=== PATIENT | male | born 1965 ===

== ENCOUNTER 2017-01-31 07:42 | Emergency (ER) | payer SELFPAY ==
--- NOTE | 2017-01-31 10:24 | UC ---
Marcin Scherer Salem, scribed for Eligio Urrutia MD on 01/31/17 at 0841 . General HPI - HPI Summary HPI Summary: Patient is a 51 y/o M who presents to the with high BP. He states that he recently had his BP checked and it was 155/93. (His BP was 163/106 upon examination today.) Pt states that he travels a lot and that he lives in [place] , but is in [place] visiting his mother. Pt complains of SOB while taking the stairs and while he was in [facility] and in [facility]. Pt also had diarrhea for a week that is now resolved on his past trip. He currently reports some gas. Pt will be leaving the country for [place] in 4 days and is concerned about health. He also states that he does not want to treat HTN with medication. Patients medication reviewed this visit. - History of Current Complaint Chief Complaint: UCGeneralIllness Stated Complaint: ABDOMINAL PAIN Time Seen by Provider: 01/31/17 08:26 Hx Obtained From: Patient Onset/Duration: Gradual Onset, Lasting Days, Still Present Timing: Intermittent Episodes Lasting: Onset Severity: Moderate Current Severity: Moderate Pain Intensity: 0 Aggravating: Exercise. Alleviating: Rest. Associated Signs & Symptoms: Positive: SOB, Other - High BP. - Allergy/Home Medications Allergies/Adverse Reactions: Allergies Allergy/AdvReac Type Severity Reaction Status Date / Time Bee Venom Allergy Anaphylatic Verified 01/31/17 07:49 Shock Lactose Allergy GI Upset Verified 01/31/17 07:49 Penicillins Allergy Unknown Verified 01/31/17 07:49 Reaction Details Wheat Bran Allergy See Comment Verified 01/31/17 07:49 Home Medications: Home Medications Mometasone NASAL (NF) [Nasonex (NF)] 01/31/17 [History] PMH/Surg Hx/FS Hx/Imm Hx Previously Healthy: Yes - Surgical History Surgical History: Yes Surgery Procedure, Year, and Place: EYE SURGERY-2014 - Family History Known Family History: Positive: Cardiac Disease, Hypertension - Social History Alcohol Use: Occasionally Substance Use Type: None Smoking Status (MU): Never Smoked Tobacco Review of Systems Respiratory: Shortness Of Breath Cardiovascular: Other - High BP. Gastrointestinal: Diarrhea, Other - Gas. All Other Systems Reviewed And Are Negative: Yes Physical Exam Triage Information Reviewed: Yes Vital Signs: Initial Vital Signs Temp 98.3 F 01/31/17 07:50 Pulse 70 01/31/17 07:50 Resp 16 01/31/17 07:50 BP 163/106 01/31/17 07:50 Pulse Ox 100 01/31/17 07:50 BP noted. Vital Signs Reviewed: Yes - Additional Comments The patient is well-nourished in no acute distress and in no acute pain. The skin is warm and dry and skin color reflects adequate perfusion. HEENT: The head is normocephalic and atraumatic. The pupils are equal and reactive. The conjunctivae are clear and without drainage. Neck is supple with full range of motion and non-tender. T Respiratory: Chest is non-tender. Lungs are clear to auscultation and breath sounds are symmetrical and equal. Cardiovascular: Hear is regular rate and rhythm. There is no murmur or rub auscultated. There is no peripheral edema and pulses are symmetrical and equal. Abdomen: The abdomen is soft and non-tender. Musculoskeletal: There is no back pain noted. Extremities are non-tender with full range of motion. There is good capillary refill. Neurological: Patient is alert and oriented to person, place and time. The patient has symmetrical motor strength in all four extremities. Psychiatric: The patient has an appropriate affect and does not exhibit any anxiety or depression. Diagnostics - EKG Cardiac Rate: NL - NSR @ 67 bpm. No stemi. No ischemic changes. Re-Evaluation - Re-Evaluation First Eval Re-Evaluation Time: 09:00 Comment: Discussed EKG. Course/Dx - Course Course Of Treatment: 51 y/o presents with high BP. He states that he does not want to treat HTN with medication because he travels often. Will provide pt with instructions on HTN care with exercise and follow up with PCP. He is agreeable. - Differential Dx - Multi-Symptom Differential Diagnoses: Other - hypertension Provider Diagnoses: HTN. Discharge - Discharge Plan Condition: Stable Disposition: HOME Patient Education Materials: Hypertension (ED) Referrals: [facility] PHYSICIAN REFERRAL [Outside] Additional Instructions: Please follow up with [facility] Referral. Exercise in the treatment and prevention of hypertension Author:SAE Krauseection Commercial Makeup Artist:SANDRO Hendersoneputy Editors: Francesco Patel MD, MPHJose Miguel Bean MD, MSc Contributor Disclosures All topics are updated as new evidence becomes available and our peer review process is complete. Literature review current through: December 2016. | This topic last updated: Aug 29, 2015. INTRODUCTION Long-term aerobic exercise regimens (in most studies) have had a beneficial effect on the systemic blood pressure (BP) and therefore may reduce the incidence of hypertension [1-6]. During aerobic exercise, there is an appropriate elevation in BP, primarily systolic. However, some subjects have an exaggerated increase in BP during exercise, which may be an adverse prognostic sign. In addition to aerobic exercise, resistance training has been shown to reduce BP [7]. EFFICACY Both aerobic exercise and resistance training lower resting blood pressure (BP). Aerobic exercise Regular aerobic exercise can lower the BP by as much as 5 to 15 mmHg in patients with primary hypertension (formerly called "essential" hypertension), although the effect is not as pronounced among older individuals [8]. In meta-analyses of randomized, controlled trials, the mean reduction in systolic and diastolic BP was 4 to 6 and 3 mmHg, respectively [1,9,10]. Patients with resistant hypertension may also benefit from aerobic exercise [11] . Swimming training also can have a beneficial effect [12]. It may be particularly useful in patients with orthopedic problems or, because of the warm , humid environment, those with bronchospasm. (See "Exercise-induced bronchoconstriction".) A similar fall in BP has been demonstrated in subjects with borderline hypertension, with the BP often being lowered into the normal range [13]. By comparison, the incidence of hypertension is increased in individuals with a low level of fitness [2,14]. The BP response to exercise is dependent upon continuation of the exercise program, as abstention from exercise is associated with a return of the BP toward the pre-exercise level [13]. In addition to voluntary exercise, spontaneous physical activity (fidgeting) is another potentially important source (100 to 800 kcal/day) of energy expenditure [15]. With few exceptions, most studies have shown a persistent fall in BP that is more dependent upon the intensity of exercise than on its frequency [10]. In a study of 207 untreated hypertensive patients, for example, those who exercised for eight weeks at an intensity of 50 percent of estimated maximal oxygen consumption only two times a week for a total of 60 minutes had almost as much fall in BP (about 12/6 mmHg) as those who exercised more than five times a week for a total of more than 120 minutes [16]. In addition to its antihypertensive effect, regular aerobic exercise also provides other cardiovascular benefits. These include a fall in total cholesterol, an elevation in HDL-cholesterol, a reduction in weight, and a decline in overall cardiovascular mortality (figure 1). The effects of both duration and intensity of exercise on primary and secondary prevention of cardiovascular disease are presented in detail elsewhere. (See "Exercise and fitness in the prevention of cardiovascular disease".) Resistance training Resistance (strength) training with either dynamic (in which joint angles and muscle lengths change) or pure isometric (in which they do not) exercise also reduces resting BP [7,10,17]. A meta-analysis of 28 trials that enrolled 1012 participants found that resting BP significantly decreased by 4/4 mmHg with moderate-intensity resistance training [7]. The effect of resistance training was slightly larger with isometric (as compared with dynamic) resistance and in normotensive (as compared with hypertensive) individuals. MECHANISMS The factors responsible for the potential antihypertensive effect of long-term aerobic exercise are incompletely understood [18], although both a reduction in sympathetic activity and an improvement in endothelial function have been proposed [3,4,19-21]. As an example, a randomized trial of 28 patients with a recent myocardial infarction showed that exercise training improved baroreceptor sensitivity and reduced muscle sympathetic nerve activity [19]. Another study that performed muscle biopsies on patients with hypertension before and after an exercise program documented decreased levels of the vasoconstrictor thromboxane and increased levels of the vasodilator prostacyclin [20]. Although the foregoing studies minimized concurrent weight loss, which would confound their results, patients who exercise may derive additional advantages through the effects of exercise on weight loss [22]. (See "Obesity and weight reduction in hypertension".) BETA BLOCKERS AND EXERCISE The ability to perform exercise may be adversely effected by antihypertensive medications. In particular, beta blockers ( particularly those that are nonselective) can significantly diminish exercise performance. There is, however, a training effect, and maintenance of performance levels has been observed in patients treated with beta blockers [23] . Other classes of antihypertensive drugs have no detrimental effect on the ability to exercise. EXAGGERATED EXERCISE-INDUCED HYPERTENSION Strength training and pure isometric exercise, such as weight lifting, can acutely raise the blood pressure (BP) to as high as 230 to 330/170 to 250 mmHg in some individuals [24]. Reflex-mediated increased cardiac output and elevated vascular resistance (due in part to mechanical compression in the exercising muscles) contribute to this hypertensive response. The marked increase in BP with intense isometric exercise can precipitate intraocular bleeding or retinal detachment, particularly in patients with severe non-proliferative diabetic retinopathy or proliferative diabetic retinopathy, in whom such exercise is discouraged. (See "Effects of exercise in adults with diabetes mellitus", section on 'Summary and recommendations'.) Aerobic exercise, on the other hand, is associated with an increase in cardiac output acutely but a reduction in vascular resistance due to vasodilatation in the exercising muscle [19,20,24]. As a result, the systolic pressure rises modestly, usually with no change or a slight reduction in diastolic pressure. ( See "Exercise physiology".) However, some patients have a marked (exaggerated) rise in systolic pressure with aerobic exercise, frequently defined as a peak systolic pressure during exercise of 200 mmHg or greater [25-27]. Proposed pathogenetic factors include increased sympathetic tone during the stress of exercise and a decrease in aortic distensibility, which exacerbates the elevation in systolic pressure induced by the rise in cardiac output. An exaggerated exercise-induced risk in systolic pressure is not always reproduced on subsequent exercise tests. This was illustrated in a report of 117 such patients who underwent two to seven exercise tests [28]. An exaggerated response (defined as a BP at peak exercise that exceeded 200 mmHg systolic and 100 mmHg diastolic) occurred in at least two-thirds of tests in only 18 (15 percent). Exercise-induced hypertension and cardiovascular disease An exaggerated elevation in systolic pressure during or after exercise may be prognostically important. The following observations illustrate the range of findings: Patients who have exaggerated transient elevations in BP during exercise or mental stress (particularly at work) may be particularly prone to the development of left ventricular hypertrophy (LVH) [29]. The cardiovascular mortality is increased among individuals with severe BP elevations in response to exercise. In a prospective report of 1999 apparently healthy men aged 40 to 59 years who underwent a six-minute standardized bicycle exercise test, the cardiovascular rate at 16 years was increased more than twofold in subjects with a postexercise systolic BP >200 mmHg [25]. Normotensive individuals with an exaggerated BP response to exercise may be at increased risk for subsequent hypertension. In a report from the [facility] Study, an exaggerated diastolic (not systolic) response, defined as an age -adjusted value >95th percentile, was predictive of subsequent hypertension in men and women, and an increased systolic response during recovery was predictive in men [30]. Similar results have been noted among 6557 normotensive [place] men [31]. On the other hand, exercise-induced hypertension may not be an adverse prognostic indicator in patients with suspected or known coronary disease. In one report of over 3000 such patients referred for exercise testing, those with exercise-induced hypertension (defined as a peak systolic BP 210 mmHg in men and 190 mmHg in women) were less likely to have perfusion abnormalities on a thallium scan or to have extensive abnormalities, and there was no increase in mortality at six-year follow-up [32]. A subsequent report from the same group noted a worse prognosis in patients with delayed decline in systolic BP after exercise, defined as a ratio of systolic BP at three minutes to systolic BP at one minute of recovery greater than one [33]. This finding was associated with a greater likelihood of severe coronary artery disease, ie, left main, three-vessel, or two-vessel disease with proximal left anterior descending artery involvement (34 versus 17 percent , p = 0.001) [33]. INFORMATION FOR PATIENTS [facility] offers two types of patient education materials, "The Basics" and "Beyond the Basics." The Basics patient education pieces are written in plain language, at the 5th to 6th grade reading level, and they answer the four or five castro questions a patient might have about a given condition. These articles are best for patients who want a general overview and who prefer short, [id number] materials. Beyond the Basics patient education pieces are longer, more sophisticated, and more detailed. These articles are written at the 10th to 12th grade reading level and are best for patients who want in-depth information and are comfortable with some medical jargon. Here are the patient education articles that are relevant to this topic. We encourage you to print or e-mail these topics to your patients. (You can also locate patient education articles on a variety of subjects by searching on "patient info" and the keyword(s) of interest.) Basics topic (see "Patient education: Controlling your blood pressure through lifestyle (The Basics)") Beyond the Basics topic (see "Patient education: High blood pressure, diet, and weight (Beyond the Basics)") SUMMARY Regular aerobic exercise and resistance training are usually accompanied by a fall in blood pressure (BP), which can be beneficial in the treatment of hypertension. In addition, regular exercise can likely delay, if not stop, the development of hypertension. All individuals should be advised to gradually increase their levels of physical activity. Use of [employer] is subject to the Subscription and License Agreement. REFERENCES Shanelle SP, Hermilo A, Roslyn X, Karl J. Effect of aerobic exercise on blood pressure: a meta-analysis of randomized, controlled trials. Michelle [employer]wood [employer] Med 2002; 136:493. Philippe SN, Andreas NN, Chio LW, Americo KH. Physical fitness and incidence of hypertension in healthy normotensive men and women. FUENTES 1984; 252:487. Derrick JJ, Brice JE, Armin SJ, et al. The effects of aerobic exercise on plasma catecholamines and blood pressure in patients with mild essential hypertension. FUENTES 1985; 254:2609. Jai L, Smiley GL, Ena DEVRIES, Esperanza PI. Effect of changing levels of physical activity on blood-pressure and haemodynamics in essential hypertension. Lancet 1986; 2:473. Afia MH, Matthew MB, Davonte SA, Louie BURGESS. Exercise training combined with antihypertensive drug therapy. Effects on lipids, blood pressure, and left ventricular mass. FUENTES 1990; 263:2766. Nakanishi N, Yoni K. Daily life activity and the risk of developing hypertension in middle-aged [place] men. Arch [employer] Med 2005; 165:214. Henry RAMSEY, Roney RH, Juan F E, Saloni L. Impact of resistance training on blood pressure and other cardiovascular risk factors: a meta- analysis of randomized, controlled trials. Hypertension 2011; 58:950. Louie BURGESS, Felix AC, Raffy KL, et al. Effect of exercise on blood pressure in older persons: a randomized controlled trial. Arch [employer] Med 2005; 165:756. Vinnie HO, Aleksandar JM, Nicolson DJ, et al. Lifestyle interventions to reduce raised blood pressure: a systematic review of randomized controlled trials. J Hypertens 2006; 24:215. Henry RAMSEY, Lynnette R, Jarek NA. Endurance exercise beneficially affects ambulatory blood pressure: a systematic review and meta-analysis. J Hypertens 2013; 31:639. Kristieeo F, Pagonas N, Najma F, et al. Aerobic exercise reduces blood pressure in resistant hypertension. Hypertension 2012; 60:653. Gail H, Joanie NEAL Jr, Beatrice ET, et al. Swimming training lowers the resting blood pressure in individuals with hypertension. J Hypertens 1997; 15:651. Carly VK, Bob J, Angelo J, Reid P. Effects of endurance training on baroreflex sensitivity and blood pressure in borderline hypertension. Lancet 1991; 337:1363. Piedado NC, Juan Daniel G, Anibaltamadiha M, et al. Low physical activity as a predictor for antihypertensive drug treatment in 58-13-pnxo-old populations in [place] and [place]. J Hypertens 2005; 23:293. Yosef E, Tian S, Garcia TE, et al. Determinants of 24-hour energy expenditure in man. Methods and results using a respiratory chamber. J Clin Invest 1986; 78:1568. Ishikawa-Takata K, Ohta T, Gail H. How much exercise is required to reduce blood pressure in essential hypertensives: a dose-response study. Am J Hypertens 2003; 16:629. Henry VA, Roney RH. Effect of resistance training on resting blood pressure: a meta-analysis of randomized controlled trials. J Hypertens 2005; 23: 251. Verna K. Antihypertensive mechanism of exercise. J Hypertens 1993; 11:223. Josue DG, Nicoeddieu BERENICE, Darell RL, et al. Effects of long-term exercise training on autonomic control in myocardial infarction patients. Hypertension 2011; 58: 1049. York AH, Gloria M, Bongsbo J, et al. Exercise training alters the balance between vasoactive compounds in skeletal muscle of individuals with essential hypertension. Hypertension 2011; 58:943. Goto C, Higashi Y, Ashli M, et al. Effect of different intensities of exercise on endothelium-dependent vasodilation in humans: role of endothelium-dependent nitric oxide and oxidative stress. Circulation 2003; 108:530. Thorogood A, Mottillo S, Shimony A, et al. Isolated aerobic exercise and weight loss: a systematic review and meta-analysis of randomized controlled trials. Am J Med 2011; 124:747. Sukumar MC, Diane SM, Bernice JM, Niall PD. Effect of doxazosin or atenolol on exercise performance in physically active, hypertensive men. Am J Cardiol 1995; 75:258. Murphy MC, Malu NL, Liyah P, Phuong GW. Hypertension: the acute and chronic response to exercise. Am Heart J 1991; 122:264. Anital R, Amandasen SE, Fifi L, et al. Exercise blood pressure predicts cardiovascular mortality in middle-aged men. Hypertension 1994; 24:56. Major P, Bethanie BJ, Ana Rosa JW, et al. Usefulness of exercise-induced hypertension as predictor of chronic hypertension in adults after operative therapy for aortic isthmic coarctation in childhood. Am J Cardiol 2011; 108:435. Tutu R, Dedrick F, Angeles R, et al. Exercise-induced hypertension, endothelial dysfunction, and coronary artery disease in a marathon runner. Am J Cardiol 2007 ; 99:743. Surekha Y, Petey Z, Cathy A, et al. Reproducibility of exaggerated blood pressure response to exercise in healthy patients. Am Heart J 2001; 141:1014. Gotkarthik JS, Amadeo J, Doris J, Boaz RD. Left ventricular hypertrophy in men with normal blood pressure: relation to exaggerated blood pressure response to exercise. Michelle [employer] Med 1990; 112:161. Cuevas RIVERA, Chuckie MG, Manglennao TA, et al. Blood pressure response during treadmill testing as a risk factor for new-onset hypertension. The [place] heart study. Circulation 1999; 99:1831. Tsumura K, Mesfin T, Hamada C, et al. Blood pressure response after two-step exercise as a powerful predictor of hypertension: the [place] [facility] Survey. J Hypertens 2002; 20:1507. Pranav Dalton, Vick ROBERTSON, Gilmar CLEMENT, et al. Usefulness of an exaggerated systolic blood pressure response to exercise in predicting myocardial perfusion defects in known or suspected coronary artery disease. Am J Cardiol 1999; 84: 1304. Quang LAUGHLIN, Vick ROBERTSON, Gilmar CLEMENT, Percy MS. Delayed systolic blood pressure recovery after graded exercise: an independent correlate of angiographic coronary disease. J Am Keeley Cardiol 1999; 34:754. The documentation as recorded by the Marcin garcía Salem accurately reflects the service I personally performed and the decisions made by , Eligio Urrutia MD.
[2017-01-31 12:22] LABS: Hematocrit 43 % (42-52); Hemoglobin 14.5 g/dl (14.0-18.0); Mean Corpuscular HGB Conc 34 g/dl (31-36); Mean Corpuscular Hemoglobin 30 pg (27-31); Mean Corpuscular Volume 90 fL (80-94); Mean Platelet Volume 10 um3 (7.4-10.4); Red Blood Count 4.76 10^6/ul (4.0-5.4); Red Cell Distribution Width 13 % (10.5-15)
[2017-01-31 12:36] LABS: Albumin 4.3 g/dL (3.2-5.2); Calcium 9.7 mg/dL (8.6-10.3); EGFR African American 108.4 (>60); EGFR Non-African American 84.3 (>60); Globulin 2.5 g/dL (2-4); Potassium 4.1 mmol/L (3.5-5.0); Total Bilirubin 0.5 mg/dL (0.2-1.0); Total Protein 6.8 g/dL (6.4-8.9)
== END 2017-01-31 09:04 | disposition home or self-care (01) ==
LOC: UCEAST 07:42
DX: I10 Essential (primary) hypertension (principal); R06.02 Shortness of breath; R19.7 Diarrhea, unspecified; Z88.0 Allergy status to penicillin; Z91.030 Bee allergy status
CPT/HCPCS: 36415; 80053; 85025; 93005; 99202; G0463